=== PATIENT | male | born 1990 | race Hispanic/Latino ===

== ENCOUNTER 2017-10-18 02:43 | Emergency (ER) | payer OTHER ==
--- NOTE | 2017-10-18 03:06 | ED PDOC ---
HPI: Psych/Substance Abuse Time Seen by Provider: 10/18/17 03:06 Chief Complaint (Provider): etoh History Per: Patient, EMS Additional Complaint(s): 26-year-old male presents acutely intoxicated via ambulance. Patient offers no acute complaints. Past Medical History Reviewed: Historical Data, Nursing Documentation, Vital Signs - Medical History PMH: No Chronic Diseases - Surgical History Surgical History: No Surg Hx - Family History Family History: States: No Known Family Hx - Living Arrangements Living Arrangements: With Friends/Others - Social History Current smoker - smoking cessation education provided: No Alcohol: Social Drugs: Denies - Home Medications Home Medications: Ambulatory Orders Medication Instructions Recorded Acetaminophen/Oxycodone Hydr 1 tab PO Q6 PRN #15 tab 01/02/14 [Percocet 325 mg-5 mg] Naproxen [Naprosyn Tab] 500 mg PO BID PRN #20 tab 01/02/14 - Allergies Allergies/Adverse Reactions: Allergies Allergy/AdvReac Type Severity Reaction Status Date / Time No Known Allergies Allergy Verified 01/02/14 11:37 Review of Systems ROS Statement: Except As Marked, All Systems Reviewed And Found Negative Psych: Positive for: Other (etoh) Physical Exam - Reviewed Nursing Documentation Reviewed: Yes Vital Signs Reviewed: Yes - Physical Exam Appears: Positive for: Well, Non-toxic, No Acute Distress Skin: Positive for: Normal Color. Negative for: Rash Eye Exam: Positive for: Normal appearance Cardiovascular/Chest: Positive for: Regular Rate, Rhythm Respiratory: Positive for: Normal Breath Sounds Extremity: Positive for: Normal ROM Neurologic/Psych: Positive for: Alert, Other (intoxicated, answers some questions appropriately) - ECG O2 Sat by Pulse Oximetry: 98 Pulse Ox Interpretation: Normal Medical Decision Making Medical Decision Makin26 y/o old intoxicated male Patient is awake and alert upon arrival. He has steady gait, stable for discharge. Disposition - Clinical Impression Clinical Impression: Alcohol intoxication - Patient ED Disposition Is Patient to be Admitted: No - Disposition Referrals: [facility] [Outside] Disposition: Routine/Home Disposition Time: 03:45 Condition: STABLE Instructions: Alcohol Use - When Is Drinking a Problem?
[2017-10-18 03:11] VITALS: PULSE 90; TEMP 98.3; O2SAT 98
[2017-10-18 04:34] VITALS: BP 127/64; RESP 14
== END 2017-10-18 04:34 | disposition home or self-care (01) ==
LOC: H.ER 02:43
DX: F10.129 Alcohol abuse with intoxication, unspecified (principal)